=== PATIENT | male | born 1975 | race Caucasian/White ===

== ENCOUNTER 2017-08-28 08:31 | Emergency (ER) | payer BC ==
[2017-08-28] MEDS ORDERED: ASPIRIN 81 MG CHEWABLE TABLET PO ONE (08:36)
[2017-08-28] MEDS ORDERED: AMIODARONE 150MG/100ML BOLUS 150 MG/100 ML ML IV ONE (08:37)
[2017-08-28] MEDS ORDERED: METOPROLOL TART 5 MG/5 ML VIAL IV ONE (08:37)
[2017-08-28] MEDS ORDERED: HEPARIN SODIUM 1000 UNIT/1 ML 10ML VIAL IVP ONE (08:37)
[2017-08-28 08:44] LABS: HEMATOCRIT 44.8 % (42.0-52.0); HEMOGLOBIN 15.8 gm/dl (14.0-18.0); MEAN CORPUSCULAR HEMOGLOBIN 30.3 pg (27-33); MEAN CORPUSCULAR HGB CONC 35.3 g/dl (32-36); MEAN PLATELET VOLUME 9.1 fl (7.4-10.4); PLATELET COUNT 488 K/uL (130-400); RED BLOOD COUNT 5.21 M/uL (4.40-5.70); RED CELL DISTRIBUTION WIDTH 12.4 % (11.5-14.5); WHITE BLOOD COUNT W/O DIFF 18.4 K/uL (4.2-12.2)
[2017-08-28 08:51] LABS: PARTIAL THROMBOPLASTIN TIME 23.7 SECONDS (24.5-39.1); PROTHROMBIN TIME (PATIENT) 10.7 SECONDS (9.5-12.1)
[2017-08-28 08:52] LABS: BLOOD UREA NITROGEN 16 mg/dL (5-18); CREATININE 1.1 mg/dL (0.7-1.2)
--- NOTE | 2017-08-28 08:53 | Emergency Department Record ---
History of Present Illness - General Stated Complaint: CHEST PAIN/FULL ARREST Time Seen by Provider: 08/28/17 08:36 Source: Patient Mode of Arrival: Carried Limitations: Altered mental status - History of Present Illness Initial Comments: The patient is a 42 Y/O WM who was not feeling well this AM so his co-worker drover him to the ER. On the way here he became unresponsive. The patient was carried into the ER unresponsive and was found to be in Vfib. He was defibrillated twice into sinus rhythm. The patient then did wake up with no complaints of pain. He states he just did not feel well and wanted to come to the ER and that was the last thing he remembers. Presently he denies any CP, BENNETT , SOB or PROSPER. His only cardiac risk factor is DM. MD Complaint: Collapsed during rest - Related Data Home Medications Medication Instructions Recorded Confirmed Last Taken Insulin NPH Human Isophane 100 unit SQ ASDIR 08/28/17 08/28/17 1 Day Ago [Humulin N] ~08/27/17 Insulin Regular, Human [Humulin R] 1 unit SQ ASDIR 08/28/17 08/28/17 1 Day Ago ~08/27/17 Allergies Allergy/AdvReac Type Severity Reaction Status Date / Time No Known Drug Allergies Allergy Verified 08/28/17 09:59 Review of Systems ROS unobtainable: Due to mental status Physical Exam - General General Appearance: Alert, Oriented x3 (After Defibrillation.), Cooperative, No acute distress - Head Head exam: Atraumatic, Normocephalic - Eye Eye exam: Normal appearance, PERRL - Neck Neck exam: Normal inspection, Full ROM. negative: Tenderness - Respiratory Respiratory exam: Normal lung sounds bilaterally. negative: Respiratory distress - Cardiovascular Cardiovascular Exam: Regular rate, Normal rhythm, Normal heart sounds - GI/Abdominal GI/Abdominal exam: Soft, Normal bowel sounds. negative: Tenderness - Extremities Extremities exam: Normal inspection, Full ROM, Normal capillary refill. negative: Tenderness - Neurological Neurological exam: Alert. negative: Motor sensory deficit Course - Reevaluation(s) Reevaluation #1: Due to the Acute OK I did contact Dr. Avani Grande at [facility] and he does accept the patient for an emergency heart Catheterization. I then did discuss the case with Dr. Mitchell in the ER and she does accept accept the patient in transfer. 08/28/17 08:53 Medical Decision Making - Data Complexity [facility] Data: EKG Ordered and/or Reviewed - Lab Data Result diagrams: 08/28/17 08:40 08/28/17 08:40 Lab Results 08/28/17 Range/Units 08:40 WBC 18.4 H (4.2-12.2) K/uL RBC 5.21 (4.40-5.70) M/uL Hgb 15.8 (14.0-18.0) gm/dl Hct 44.8 (42.0-52.0) % MCV 86.0 (81-97) fl MCH 30.3 (27-33) pg MCHC 35.3 (32-36) g/dl RDW 12.4 (11.5-14.5) % Plt Count 488 H (130-400) K/uL MPV 9.1 (7.4-10.4) fl Eosinophils % Not Reportable Basophils % Not Reportable - EKG Data -: EKG Interpreted by Or EKG: Acute OK (No ST Elevation) (Anterior wall OK.) Disposition Disposition: Transfer Clinical Impression: Acute OK Qualifiers: Myocardial infarction type: ST elevation myocardial infarction Involved coronary artery: unspecified coronary artery Qualified Code(s): I21.3 - ST elevation (STEMI) myocardial infarction of unspecified site Disposition: Acute Care Hospital Transfer Transfer To: [facility] Reason For Transfer: OK Accepting Physician: Stephen/ Harjinder Time Discussed w/Accepting Physician: 08:55 Condition: (5) Critical Forms: Patient Portal Access Time of Disposition: 08:55 Quality - Quality Measures Quality Measures: N/A - Blood Pressure Screening View Details: Yes Does Patient Have Any of the Following: No Systolic Measurement: ~ Screening for High Blood Pressure: < Normal BP, F/U Not Required > [G8783]
[2017-08-28 08:55] LABS: GLUCOSE,RANDOM 234 mg/dL (74-109)
[2017-08-28 08:58] LABS: CREATINE PHOSPHOKINASE 268 U/L (39-308)
[2017-08-28 09:00] LABS: CKMB 4.3 ng/mL (<6.73)
[2017-08-28] MEDS ORDERED: AMIODARONE 360MG/200ML MAINT 360 MG/200 ML ML IV ONE (10:10)
[2017-08-28] MEDS ORDERED: 0.9 % SODIUM CHLORIDE 1,000 ML BAG IV ONE (10:11)
== END 2017-08-28 08:50 | disposition short-term general hospital (02) ==
LOC: ER 08:31
DX: I21.4 Non-ST elevation (NSTEMI) myocardial infarction (principal); E11.9 Type 2 diabetes mellitus without complications; Z79.4 Long term (current) use of insulin
CPT/HCPCS: 92950 ×2; 99291 ×2; 96365; 96375; 82550; 85730; 85610; 82553; 80048; 36416; 82948; 84484; 85027; 93005; 93010; J0282 ×2; J7030